=== PATIENT | female | born 1965 | race Caucasian/White ===

== ENCOUNTER 2023-01-19 08:35 | Outpatient (CLI) | payer BC, SELFPAY | END 2023-01-19 08:36 | disposition home or self-care (01) | PROVIDERS: Visit Provider Family Medicine | DX: Z00.00 Encounter for general adult medical examination without abnormal findings (principal); R03.0 Elevated blood-pressure reading, without diagnosis of hypertension; F41.8 Other specified anxiety disorders; F10.20 Alcohol dependence, uncomplicated | CPT/HCPCS: 80053; 80061; 82306; 82607 ==

== ENCOUNTER 2024-10-15 11:10 | Outpatient (CLI) | payer BC, SELFPAY ==
[2024-10-15 15:06] LABS: C Reactive Protein* < 0.5 mg/dL (0.5-1.0)
[2024-10-15 15:46] LABS: Erythrocyte SedimentationRate* 3 mm/hr (2-20)
== END 2024-10-15 11:11 | disposition home or self-care (01) ==
LOC: NPINS 11:11
PROVIDERS: PCP Family Medicine; Visit Provider Orthopaedic Surgery
DX: M25.559 Pain in unspecified hip (principal)
CPT/HCPCS: 85651; 86140

== ENCOUNTER 2025-04-11 09:26 | Outpatient (CLI) | payer BC, SELFPAY | END 2025-04-11 09:27 | disposition home or self-care (01) | LOC: NFLDREF 04-16 12:59 | PROVIDERS: PCP Family Medicine; Referring Provider Family Medicine; Visit Provider Family Medicine | DX: Z00.00 Encounter for general adult medical examination without abnormal findings (principal) | CPT/HCPCS: 80053 ==